=== PATIENT | male | born 2000 | race African-American/Black ===

== ENCOUNTER 2023-07-04 19:18 | Emergency (ER) | payer BC, OTHER ==
[2023-07-04] MEDS ORDERED: Diazepam 5 MG TAB ONE (19:42)
[2023-07-04] MEDS ORDERED: Ketorolac Tromethamine 60 MG/2 ML VIAL ONE (19:42)
[2023-07-04] MEDS ORDERED: Acetaminophen/Codeine 30-300mg Tablet ONE (19:43)
== END 2023-07-04 19:55 | disposition home or self-care (01) ==
LOC: BURERS 19:18
DX: S50.811A Abrasion of right forearm, initial encounter (principal); M79.645 Pain in left finger(s); V43.92XA Unspecified car occupant injured in collision with other type car in traffic accident, initial encounter
CPT/HCPCS: 96372; J1885